=== PATIENT | female | born 1980 | race Caucasian/White ===

== ENCOUNTER 2017-11-04 03:40 | Emergency (ER) | payer MEDICARE, MEDICAID ==
[~2017-11-04] VITALS: Ht 162.6 cm; Wt 90.9 kg
[2017-11-04] MEDS ORDERED: KETOROLAC TROMETHAMINE 30 MG/ML VIAL IVP ONE (05:15)
[2017-11-04] MEDS ORDERED: CeFAZolin 1 GM/DEXTROSE 50 ML IV ONE (05:15)
[2017-11-04] MEDS ORDERED: SULFAMETHOX/TRIMETH DS 800-160 MG/TABLET PO ONE (05:15)
[2017-11-04] MEDS ORDERED: CEFTAROLINE 600 MG/D5W 250 ML IV ONE (05:30)
[2017-11-04] MEDS ORDERED: CeFAZolin SODIUM 1 GM in DEXTROSE 5%-WATER 10 ML IV ONE (05:30)
[2017-11-04 06:18] VITALS: BP 141/89
== END 2017-11-04 06:47 | disposition home or self-care (01) ==
LOC: EMS 03:40
DX: L03.113 Cellulitis of right upper limb (principal); F11.10 Opioid abuse, uncomplicated
CPT/HCPCS: 96365; 96375; 99284; J0712; J1885; J0690; J7060

== ENCOUNTER 2019-04-04 22:50 | Emergency (ER) | payer MEDICARE, MEDICAID ==
[~2019-04-04] VITALS: Ht 162.6 cm; Wt 95.5 kg
[2019-04-05 04:45] VITALS: BP 115/74
== END 2019-04-05 05:12 | disposition home or self-care (01) ==
LOC: EMS 22:50
DX: S06.0X0A Concussion without loss of consciousness, initial encounter (principal); F17.210 Nicotine dependence, cigarettes, uncomplicated; F11.90 Opioid use, unspecified, uncomplicated; Z90.49 Acquired absence of other specified parts of digestive tract; Z88.6 Allergy status to analgesic agent; Y04.0XXA Assault by unarmed brawl or fight, initial encounter; Y93.89 Activity, other specified; Y92.89 Other specified places as the place of occurrence of the external cause; Y99.8 Other external cause status
CPT/HCPCS: 70450; 99406

== ENCOUNTER 2022-02-10 15:20 | Emergency (ER) | payer MEDICAID, MEDICARE, OTHER | END 2022-02-10 19:00 | disposition left against medical advice (07) | LOC: EMS 16:08 | DX: Z53.21 Procedure and treatment not carried out due to patient leaving prior to being seen by health care provider (principal) ==

== ENCOUNTER 2022-02-13 15:30 | Inpatient (IN) | payer OTHER ==
[~2022-02-13] VITALS: Ht 162.6 cm; Wt 109.6 kg
[2022-02-13] MEDS ORDERED: SODIUM CHLORIDE 0.9% 1,000 ML IV ONE (18:15)
[2022-02-13] MEDS ORDERED: ChlordiazePOXIDE HCL 25 MG CAPSULE PO ONE (18:15)
[2022-02-13 18:44] LABS: BASOPHILS % (AUTO) 0.2 % (0.0-2.0); EOSINOPHILS % (AUTO) 0 % (1.0-6.0); HEMATOCRIT 34.3 % (36-46); HEMOGLOBIN 10.8 g/dL (12.0-16.0); LYMPHOCYTES # (AUTO) 1.2 K/uL (1.0-4.8); LYMPHOCYTES % (AUTO) 17.4 % (22.0-44.0); MEAN CORPUSCULAR HEMOGLOBIN 21.8 pg (26.0-34.0); MEAN CORPUSCULAR HGB CONC 31.4 G/dL (31.0-37.0); MEAN CORPUSCULAR VOLUME 70 fL (80-100); MONOCYTES # (AUTO) 0.3 K/uL (0.1-1.0); NEUTROPHILS # (AUTO) 5.2 K/uL (1.8-7.7); NEUTROPHILS % (AUTO) 77.4 % (40.0-70.0); PLATELET COUNT (AUTO) 339 K/uL (150-450); RED BLOOD CELL COUNT(AUTO) 4.94 MIL/uL (4.00-5.20); RED CELL DISTRIBUTION WIDTH 18.4 % (11.5-14.5)
[2022-02-13 18:51] LABS: ANION GAP 12 mmol/L (8-16); CALCIUM, TOTAL 8.9 mg/dL (8.8-10.5); CARBON DIOXIDE 26 mmol/L (22-29); CHLORIDE 102 mmol/L (98-107); CREATININE 0.61 mg/dL (0.60-1.30); GLOMERULAR FILTR. RATE CALC > 60 mL/min (>60); GLUCOSE,RANDOM 97 mg/dL (70-110); POTASSIUM 3.1 mmol/L (3.5-5.1); SODIUM SERUM 140 mmol/L (136-145); UREA NITROGEN, BLOOD 10 mg/dL (7-18)
[2022-02-13 18:57] LABS: ALANINE AMINOTRANSFERASE 23 U/L (12-78); ALBUMIN 3.5 g/dL (3.4-5.0); ALKALINE PHOSPHATASE 96 U/L (46-116); ASPARTATE AMINOTRANSFERASE 12 U/L (15-37); BILIRUBIN,TOTAL 0.3 mg/dL (0.1-1.0); TOTAL PROTEIN, SERUM 7.5 g/dL (6.4-8.2)
[2022-02-13] MEDS ORDERED: ONDANSETRON HCL 4 MG TABLET PO ONE (19:30)
[2022-02-13] MEDS ORDERED: POTASSIUM CHLORIDE 20 MEQ ER TABLET PO PRN (19:45)
[2022-02-13] MEDS ORDERED: MAGNESIUM OXIDE 400 MG TABLET PO PRN (19:45)
[2022-02-13] MEDS ORDERED: POTASSIUM CHL 10 MEQ/WATER 50 ML IV PRN (19:45)
[2022-02-13] MEDS ORDERED: KETOROLAC TROMETHAMINE 30 MG/ML VIAL IM ONE (19:45)
[2022-02-13] MEDS ORDERED: LORazepam 2 MG TABLET PO PRN (19:45)
[2022-02-13] MEDS ORDERED: MAGNESIUM SULFATE 2 GM/WATER 50 ML IV PRN (19:45)
[2022-02-13] MEDS ORDERED: MAGNESIUM SULFATE 4 GM/WATER 100 ML IV PRN (19:45)
[2022-02-13] MEDS: 1: MAGNESIUM SULFATE 2 GM, MVI, ADULT NO.1 WITH VIT K 10 ML, THIAMINE 100 MG, FOLIC ACID IV SCH ×5 (21:30)
[2022-02-13] MEDS: ONDANSETRON HCL 4 MG/2 ML VIAL IVP PRN (21:50)
[2022-02-13] MEDS: KETOROLAC TROMETHAMINE 15 MG/ML VIAL IVP PRN (21:53)
[2022-02-13] MEDS: MUPIROCIN CALCIUM 2% 15 GM CREAM TP SCH (21:59)
[2022-02-14] MEDS: HEPARIN SODIUM,PORCINE 5,000 UNITS/ML VIAL SQ SCH ×4 (00:06→22:47)
[2022-02-14] MEDS: LORazepam 2 MG TABLET PO SCH ×2 (00:22→13:24)
[2022-02-14 05:33] LABS: COVID AG,FIA SOURCE NASAL SWAB
[2022-02-14] MEDS: KETOROLAC TROMETHAMINE 15 MG/ML VIAL IVP PRN ×4 (05:51→22:44)
[2022-02-14] MEDS ORDERED: LORazepam 2 MG TABLET PO PRN (07:00)
[2022-02-14] MEDS: 1: MAGNESIUM SULFATE 2 GM, MVI, ADULT NO.1 WITH VIT K 10 ML, THIAMINE 100 MG, FOLIC ACID IV SCH ×5 (07:16)
[2022-02-14] MEDS: MUPIROCIN CALCIUM 2% 15 GM CREAM TP SCH (09:16)
[2022-02-14 11:04] LABS: AMPHET/METH SCREEN,URINE NEGATIVE (NEGATIVE); BARBITURATE SCREEN, URINE NEGATIVE (NEGATIVE); BENZODIAZEPINES SCREEN,URINE NEGATIVE (NEGATIVE); CANNABINOID SCREEN,URINE NEGATIVE (NEGATIVE); COCAINE SCREEN,URINE NEGATIVE (NEGATIVE); METHADONE SCREEN, URINE NEGATIVE (NEGATIVE); OPIATE SCREEN,URINE NEGATIVE (NEGATIVE)
[2022-02-14 11:07] LABS: PHENCYCLIDINE SCREEN,URINE NEGATIVE (NEGATIVE)
[2022-02-14 20:30] VITALS: BP 154/77
[2022-02-14] MEDS: LORazepam 2 MG TABLET PO PRN (22:38)
[2022-02-14 23:59] VITALS: BP 159/103
[2022-02-15] MEDS ORDERED: DiphenhydrAMINE HCL 50 MG/ML VIAL IVP ONE (00:30)
[2022-02-15] MEDS ORDERED: MELATONIN 3 MG TABLET PO ONE (00:30)
[2022-02-15 00:41] LABS: APPEARANCE,URINE CLEAR (CLEAR); BILIRUBIN,URINE NEGATIVE (NEGATIVE); GLUCOSE, URINE (UA) NEGATIVE (NEGATIVE); KETONES,URINE NEGATIVE (NEGATIVE); LEUKOCYTE ESTERASE ,URINE NEGATIVE (NEGATIVE); NITRATE,URINE NEGATIVE (NEGATIVE); OCCULT BLOOD,URINE LARGE (NEGATIVE); PROTEIN,URINE NEGATIVE (NEGATIVE); SPECIFIC GRAVITIY, URINE 1.011 (1.003-1.030); UROBILINOGEN,URINE <=1.0 mg/dL (<=1.0)
[2022-02-15] MEDS: LORazepam 2 MG TABLET PO PRN (00:44)
[2022-02-15 00:57] LABS: BACTERIA,URINE None Seen /HPF (None Seen); SQUAMOUS EPITHELIAL CELL,UR Rare /LPF (None Seen); WBC,URINE 0-2 /HPF (0-5)
[2022-02-15 04:00] VITALS: BP 137/77
[2022-02-15] MEDS ORDERED: LORazepam 2 MG TABLET PO PRN (07:00)
[2022-02-15 07:46] VITALS: BP 136/83
[2022-02-15] MEDS: LORazepam 2 MG TABLET PO SCH ×4 (08:31→21:56)
[2022-02-15] MEDS: HEPARIN SODIUM,PORCINE 5,000 UNITS/ML VIAL SQ SCH ×3 (08:31→23:58)
[2022-02-15] MEDS: ONDANSETRON HCL 4 MG/2 ML VIAL IVP PRN (08:34)
[2022-02-15] MEDS: KETOROLAC TROMETHAMINE 15 MG/ML VIAL IVP PRN ×3 (08:37→21:57)
[2022-02-15] MEDS ORDERED: LOPERAMIDE HCL 2 MG CAPSULE PO PRN (09:15)
[2022-02-15 12:36] LABS: CALCIUM, TOTAL 8.9 mg/dL (8.8-10.5); CARBON DIOXIDE 20 mmol/L (22-29); CREATININE 0.65 mg/dL (0.60-1.30); GLUCOSE,RANDOM 124 mg/dL (70-110); UREA NITROGEN, BLOOD 7 mg/dL (7-18)
[2022-02-15 13:53] LABS: GLOMERULAR FILTR. RATE CALC > 60 mL/min (>60)
[2022-02-15 13:54] LABS: ANION GAP 16 mmol/L (8-16); CHLORIDE 107 mmol/L (98-107); SODIUM SERUM 143 mmol/L (136-145)
[2022-02-15 13:55] LABS: BASOPHILS % (AUTO) 0.4 % (0.0-2.0); EOSINOPHILS % (AUTO) 0.3 % (1.0-6.0); HEMATOCRIT 34.2 % (36-46); HEMOGLOBIN 10.8 g/dL (12.0-16.0); LYMPHOCYTES % (AUTO) 16.2 % (22.0-44.0); MEAN CORPUSCULAR HEMOGLOBIN 21.9 pg (26.0-34.0); MEAN CORPUSCULAR HGB CONC 31.5 G/dL (31.0-37.0); MEAN CORPUSCULAR VOLUME 69 fL (80-100); MONOCYTES # (AUTO) 0.4 K/uL (0.1-1.0); MONOCYTES % (AUTO) 6.2 % (2.0-9.0); NEUTROPHILS % (AUTO) 76.9 % (40.0-70.0); PLATELET COUNT (AUTO) 345 K/uL (150-450); RED BLOOD CELL COUNT(AUTO) 4.93 MIL/uL (4.00-5.20)
[2022-02-15 15:57] VITALS: BP 134/71
[2022-02-15 19:52] VITALS: BP 139/72
[2022-02-16 04:21] VITALS: BP 156/77
[2022-02-16] MEDS ORDERED: LORazepam 1 MG TABLET PO PRN (07:00)
[2022-02-16 08:14] VITALS: BP 127/66
[2022-02-16] MEDS: LORazepam 2 MG TABLET PO SCH (08:23)
[2022-02-16] MEDS: KETOROLAC TROMETHAMINE 15 MG/ML VIAL IVP PRN ×2 (08:24→08:52)
[2022-02-16] MEDS: HEPARIN SODIUM,PORCINE 5,000 UNITS/ML VIAL SQ SCH ×3 (08:24→22:56)
[2022-02-16] MEDS ORDERED: LORazepam 1 MG TABLET PO SCH (09:00)
[2022-02-16] MEDS: TraMADol HCL 50 MG TABLET PO PRN ×2 (14:59→22:58)
[2022-02-16] MEDS: LORazepam 1 MG TABLET PO PRN ×3 (15:02→23:08)
[2022-02-16 15:22] VITALS: BP 139/91
[2022-02-16] MEDS ORDERED: ZOLPIDEM TARTRATE 5 MG TABLET PO PRN (18:45)
[2022-02-16 19:42] VITALS: BP_SYST 109; BP_DIAS 7; BP_DIAS 73
[2022-02-17] MEDS: LORazepam 1 MG TABLET PO PRN ×2 (02:57→07:53)
[2022-02-17 03:53] VITALS: BP 127/81
[2022-02-17] MEDS ORDERED: LORazepam 1 MG TABLET PO PRN ×2 (07:00)
[2022-02-17] MEDS: HEPARIN SODIUM,PORCINE 5,000 UNITS/ML VIAL SQ SCH ×3 (07:53→23:59)
[2022-02-17] MEDS: TraMADol HCL 50 MG TABLET PO PRN ×2 (07:53→16:13)
[2022-02-17 08:06] VITALS: BP 108/72
[2022-02-17] MEDS ORDERED: LORazepam 1 MG TABLET PO SCH (09:00)
[2022-02-17] MEDS ORDERED: ZOLPIDEM TARTRATE 5 MG TABLET PO PRN (10:15)
[2022-02-17 15:17] VITALS: BP 143/88
[2022-02-17 20:23] VITALS: BP 134/59
[2022-02-18] MEDS: TraMADol HCL 50 MG TABLET PO PRN ×2 (00:01→08:02)
[2022-02-18 04:26] VITALS: BP 135/93
[2022-02-18] MEDS ORDERED: LORazepam 1 MG TABLET PO PRN (07:00)
[2022-02-18] MEDS: HEPARIN SODIUM,PORCINE 5,000 UNITS/ML VIAL SQ SCH (08:02)
[2022-02-18 08:05] VITALS: BP 122/79
== END 2022-02-18 12:30 | DRG 641 ==
LOC: EMS 15:30 → 6S 02-14 18:36
PROVIDERS: ADMIT Internal Medicine; ATTEND Internal Medicine
DX: E87.6 Hypokalemia (principal); F10.131 Alcohol abuse with withdrawal delirium; F10.10 Alcohol abuse, uncomplicated; F11.10 Opioid abuse, uncomplicated; F15.10 Other stimulant abuse, uncomplicated; Z20.822 Contact with and (suspected) exposure to COVID-19; E66.01 Morbid (severe) obesity due to excess calories; G89.29 Other chronic pain; G47.00 Insomnia, unspecified; Z79.899 Other long term (current) drug therapy; Z88.8 Allergy status to other drugs, medicaments and biological substances; Z87.891 Personal history of nicotine dependence; Z90.49 Acquired absence of other specified parts of digestive tract
CPT/HCPCS: 80048; 80053; 81001; 83735; 84703; 85025; 99285; J1200; J1644; J1885; J2405; J3411; J3475; J3490; J7030